=== PATIENT | female | born 1985 ===

== ENCOUNTER → 2024-12-22 07:19 | Outpatient (CLI) | payer BC, SELFPAY ==
--- NOTE | 2024-12-22 | DI.US.S_ITS ---
PROCEDURE: US THYROID INDICATIONS: Iodine-deficiency related diffuse (endemic) goiter TECHNIQUE: Real-time scanning was performed of the thyroid gland, with image documentation. COMPARISON: None. FINDINGS: Thyroid: Right lobe measures 5.5 x 1.5 x 2.0 cm. Left lobe measures 4.8 x 1.5 x 1.5 cm. Isthmus is 1.6 cm thick. Echotexture is homogeneous. IMPRESSION: No thyroid nodules. Nonenlarged, homogeneous thyroid. Dictated by: Deacon Anderson M.D. on 12/22/2024 at 15:56 Approved by: Deacon Anderson M.D. on 12/22/2024 at 15:57
== END ==
PROVIDERS: PCP Family Medicine; Referring Provider Family Medicine; Visit Provider Family Medicine
DX: E01.0 Iodine-deficiency related diffuse (endemic) goiter (principal)
CPT/HCPCS: 76536